=== PATIENT | male | born 1985 | race Caucasian/White ===

== ENCOUNTER 2018-08-01 22:30 | Emergency (ER) | payer SELFPAY ==
[2018-08-01 22:38] VITALS: PULSE 83; RESP 20
--- NOTE | 2018-08-01 23:56 | C.PDOC ---
History Of Present Illness 33 year old male presents to the ED c/o intermittent fever for the past 10 days. Patient was seen at [facility] on 07/26/18, patient had labs done and was diagnosed with a viral illness. Patient rpeorts he was not given any medication only Tylenol. Patient states he still coughing and continues with the symptoms and pain. Patient now developed dizziness. Patient saw his PMD yesterday and was given Meclazine an Ibuprofen with no relief. Patient denies nausea, vomit, diarrhea, headache, CP, SOB, rash, recent travel, sick contacts. HPI: Influenza Time Seen by Provider: 08/01/18 22:42 Chief Complaint: Flu-like Symptoms History Per: Patient Exam Limitations: no limitations Have you had recent travel within the past 21 days to any of the following countries: [place], [place], [place] or [place]?: No Onset/Duration Of Symptoms: Days (10), Persistent Symptoms include: fever, cough Sick Contacts (Context): None Hx Influenza Vaccination: No Past Medical History Reviewed: Historical Data, Nursing Documentation, Vital Signs Vital Signs: Last Vital Signs Temp 97.8 F 08/01/18 22:32 Pulse 83 08/01/18 22:32 Resp 20 08/01/18 22:32 BP 157/93 H 08/01/18 22:32 Pulse Ox 99 08/01/18 22:32 - Medical History PMH: No Chronic Diseases Surgical History: No Surg Hx - [facility] INJECT/INFUSE NEC (06/08/13) Family History: States: Unknown Family Hx - Social History Hx Alcohol Use: No Hx Substance Use: No - Immunization History Hx Tetanus Toxoid Vaccination: No Hx Influenza Vaccination: No Hx Pneumococcal Vaccination: No Review Of Systems Constitutional: Positive for: Fever. Negative for: Chills ENT: Positive for: Nose Congestion. Negative for: Nose Discharge Respiratory: Positive for: Cough. Negative for: Shortness of Breath, Sputum, Wheezing Gastrointestinal: Negative for: Nausea, Vomiting, Abdominal Pain Skin: Negative for: Rash Neurological: Positive for: Dizziness. Negative for: Weakness, Numbness, Headache Physical Exam - Physical Exam Appears: Non-toxic, No Acute Distress Skin: Normal Color, Warm, Dry Head: Atraumatic, Normacephalic Eye(s): bilateral: Normal Inspection Ear(s): Bilateral: Normal Nose: No Discharge Oral Mucosa: Moist Throat: Normal, No Erythema, No Exudate Neck: Normal ROM, Supple Lymphatic: No Adenopathy Chest: Symmetrical Cardiovascular: Rhythm Regular Respiratory: Normal Breath Sounds, No Rales, No Rhonchi, No Wheezing Gastrointestinal/Abdominal: Soft, No Tenderness, No Guarding, No Rebound Extremity: Normal ROM, No Tenderness, No Swelling Neurological/Psych: Oriented x3, Normal Speech, Normal Cognition Gait: Steady Medical Decision Making Medical Decision Making: Plan: * CXR * Claritin 10 mg PO * Tessalon Perles 200 mg PO * Zithromax 500 mg PO On reassessment, patient is resting comfortably, and is in no acute distress. Patient was instructed to follow up with physician/clinic in 1-2 days for further evaluation - ECG O2 Sat by Pulse Oximetry: 99 (ON RA) Pulse Ox Interpretation: Normal - Radiology X-Ray: Interpreted by Me, Viewed By Me X-Ray Interpretation: No Acute Disease Disposition - Disposition Referrals: Jaylen Soto [Medical Doctor] - Disposition: HOME/ ROUTINE Disposition Time: 23:58 Condition: STABLE Additional Instructions: Follow up with the medical doctor within 1-2 days. Return if worsened. 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 - Scribe Statement The provider has reviewed the documentation as recorded by the Scribe Moshe Lama All medical record entries made by the Scribe were at my direction and personally dictated by me. I have reviewed the chart and agree that the record accurately reflects my personal performance of the history, physical exam, medical decision making, and the department course for this patient. I have also personally directed, reviewed, and agree with the discharge instructions and disposition.
[2018-08-02 00:06] VITALS: BP 130/82; TEMP 98.3
[2018-08-02 00:07] VITALS: O2SAT 99
--- NOTE | 2018-08-02 10:02 | RAD ---
Date of service: 08/01/2018 HISTORY: Flu symptoms COMPARISON: No prior. TECHNIQUE: Chest PA and lateral FINDINGS: LINES AND TUBES: None. LUNG AND PLEURA: The lungs are well inflated and clear. No pleural effusion or pneumothorax. HEART AND MEDIASTINUM: The heart is not enlarged. No aortic atherosclerotic calcifications present. The hilar and mediastinal contours are within normal limits. SKELETAL STRUCTURES: The bony structures are within normal limits for the patient's age. VISUALIZED UPPER ABDOMEN: Normal. OTHER FINDINGS: None. IMPRESSION: No active pulmonary disease.
== END 2018-08-02 00:04 | disposition home or self-care (01) ==
LOC: C.ER 22:30
DX: B34.9 Viral infection, unspecified (principal); J40 Bronchitis, not specified as acute or chronic

== ENCOUNTER 2018-10-01 12:17 | Emergency (ER) | payer OTHER | END 2018-10-01 15:10 | disposition home or self-care (01) | LOC: C.ER 12:17 ==